=== PATIENT | female | born 1970 | race Caucasian/White ===

== ENCOUNTER 2018-09-05 11:26 | Inpatient (IN) | payer SELFPAY ==
[~2018-09-05] VITALS: Ht 154.9 cm; Wt 60.8 kg
[2018-09-05] MEDS ORDERED: SODIUM CHLORIDE 0.9% 1,000 ML IVB ONE (11:53)
[2018-09-05] MEDS ORDERED: KETOROLAC TROMETH 30 MG/ML 1ML VIAL IV ONE (12:00)
[2018-09-05 12:19] LABS: Basophils # (auto) 0.1 uL; Basophils % (auto) 0.8 % (0.0-2.0); Eosinophils # (auto) 0.6 uL; Eosinophils % (auto) 9.5 % (0.0-7.0); Hematocrit 45.7 % (36.0-46.0); Hemoglobin 15.8 g/dL (12.2-16.2); Lymphocytes # (auto) 1.7 uL; Lymphocytes % (auto) 26.3 % (10.0-50.0); Mean Corpuscular Hemoglobin 32.8 pg (28.0-32.0); Mean Corpuscular Hgb Conc. 34.6 g/dL (32.0-36.0); Mean Corpuscular Volume 94.9 fL (80.0-100.0); Monocytes # (auto) 0.6 uL; Monocytes % (auto) 9.1 % (0.0-12.0); Neutrophils # (auto) 3.5 uL; Neutrophils % (auto) 54.3 % (37.0-80.0); Nucleated Red Blood Cells % 0.1 %; Platelet Count (auto) 177 10^3/uL (140-450); Red Blood Cells 4.82 10^6/uL (4.0-5.20); White Blood Cell 6.4 10^3/uL (4.4-10.8)
[2018-09-05] MEDS ORDERED: cloNIDine HCL 0.1 MG TAB PO ONE ×2 (12:45→14:15)
[2018-09-05 13:16] LABS: Anion Gap 8 (5-15); Blood Urea Nitrogen 14 mg/dL (7-18); Carbon Dioxide 28 mmol/L (21-32); Chloride 107 mmol/L (98-107); Glucose 78 mg/dL (74-106); Potassium 3.9 mmol/L (3.5-5.1); Sodium 143 mmol/L (136-145)
[2018-09-05 13:17] LABS: Alanine Aminotransferase 15 U/L (13-56); Albumin 3.2 g/dL (3.4-5.0); Alkaline Phosphatase 103 U/L (45-117); Aspartate Aminotransferase 10 U/L (15-37); BUN/Creatinine Ratio 11.7; Bilirubin, Total 0.2 mg/dL (0.2-1.0); GFR African American 61 mL/min; GFR Non-African American 51 mL/min; Total Protein 6.5 g/dL (6.4-8.2)
[2018-09-05 13:50] LABS: Urine Bacteria NONE SEEN /hpf (None Seen); Urine Blood 2+ /uL (Negative); Urine Specific Gravity 1.011 (1.001-1.035); Urine WBC 866 /hpf (0 - 5); Urine WBC Clumps PRESENT /hpf (None Seen)
[2018-09-05] MEDS ORDERED: cefTRIAXone 1GM/50ML D5W 50 ML IV ONE ×2 (14:15→14:45)
[2018-09-05] MEDS ORDERED: HYDROcodone-ACET 5/325MG TAB PO PRN (14:45)
[2018-09-05] MEDS ORDERED: TEMAZEPAM 15 MG CAP PO PRN (14:45)
[2018-09-05] MEDS ORDERED: ACETAMINOPHEN 500 MG TAB PO PRN (14:45)
[2018-09-05] MEDS ORDERED: ONDANSETRON HCL 4 MG/2 ML VIAL IV PRN (14:45)
[2018-09-05] MEDS ORDERED: LORazepam 0.5 MG TAB PO PRN (14:45)
[2018-09-05] MEDS ORDERED: MORPHINE SULFATE 4 MG/ML SYR/VIAL IV PRN ×2 (14:45)
[2018-09-05] MEDS ORDERED: NITROGLYCERIN 0.4 MG SL TAB SL PRN (14:45)
[2018-09-05] MEDS: SODIUM CHLORIDE 0.9% 1,000 ML IV SCH (14:46)
[2018-09-05 14:55] LABS: Alcohol, Urine < 3.0 mg/dL (0-5); Amphetamine Screen, Urine POSITIVE (NEGATIVE); Barbiturate Scree,Urine NEGATIVE (NEGATIVE); Benzodiazephine Screen, Urine NEGATIVE (NEGATIVE); Cannabinoid Screen, Urine POSITIVE (NEGATIVE); Cocaine Screen, Urine NEGATIVE (NEGATIVE); Opiate Scree,Urine NEGATIVE (NEGATIVE); Phencyclidine Screen, Urine NEGATIVE (NEGATIVE)
[2018-09-05 14:59] LABS: INR 0.96 (0.9-1.15); Partial Thromboplastin Time 27.5 sec (23.78-33.04); Prothrombin Time 10.3 sec (9.27-12.13)
[2018-09-05] MEDS: LABETALOL HCL 5 MG/ML ML 20ML VIAL IV PRN ×3 (15:38→23:57)
[2018-09-05 17:00] VITALS: BP 161/106
[2018-09-05] MEDS ORDERED: hydrALAZINE HCL 20 MG/ML VL IV ONE (17:00)
[2018-09-05 17:54] VITALS: BP 161/106
[2018-09-05] MEDS: FAMOTIDINE 20 MG TAB PO SCH (21:37)
[2018-09-05 21:46] VITALS: BP 169/114
[2018-09-06] MEDS: SODIUM CHLORIDE 0.9% 1,000 ML IV SCH ×3 (03:36→21:49)
[2018-09-06 05:20] VITALS: BP 160/99
[2018-09-06] MEDS: LABETALOL HCL 5 MG/ML ML 20ML VIAL IV PRN ×4 (06:31→15:50)
[2018-09-06 09:00] VITALS: BP 182/109
[2018-09-06] MEDS ORDERED: cefTRIAXone 1GM/50ML D5W 50 ML IV SCH (09:00)
[2018-09-06] MEDS: FAMOTIDINE 20 MG TAB PO SCH ×2 (09:03→22:26)
[2018-09-06] MEDS ORDERED: FUROSEMIDE 40 MG/4 ML VIAL IV ONE (10:15)
[2018-09-06 13:00] VITALS: BP 166/112
[2018-09-06] MEDS: CAPTOPRIL 25 MG TAB PO SCH ×2 (16:52→22:25)
[2018-09-06 17:00] VITALS: BP 150/115
[2018-09-06 21:59] VITALS: BP 134/106
[2018-09-07 05:03] VITALS: BP 152/109
[2018-09-07] MEDS: CAPTOPRIL 25 MG TAB PO SCH (06:58)
[2018-09-07] MEDS: SODIUM CHLORIDE 0.9% 1,000 ML IV SCH (06:58)
== END 2018-09-07 08:30 | disposition left against medical advice (07) | DRG 690 ==
LOC: ER 11:29 → TELE 11:30 → TELE-WESTW 17:54
PROVIDERS: ADMIT Internal Medicine; ATTEND Internal Medicine Pulmonary Disease
DX: N13.6 Pyonephrosis (principal); E44.1 Mild protein-calorie malnutrition; F17.210 Nicotine dependence, cigarettes, uncomplicated; I16.0 Hypertensive urgency; Z53.21 Procedure and treatment not carried out due to patient leaving prior to being seen by health care provider; F15.90 Other stimulant use, unspecified, uncomplicated; N21.0 Calculus in bladder; Z82.49 Family history of ischemic heart disease and other diseases of the circulatory system; Z91.19 Patient's noncompliance with other medical treatment and regimen; Z87.442 Personal history of urinary calculi; Z68.25 Body mass index [BMI] 25.0-25.9, adult
CPT/HCPCS: 36415; 74176; 78707; 80053; 80307; 81001; 85025; 85610; 85730; 87086; 94761; 96361; 96374; 96375; J0696; J1885